=== PATIENT | female | born 1975 | race Caucasian/White ===

== ENCOUNTER 2016-10-28 20:32 | Emergency (ER) | payer BC ==
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
[2016-10-29] MEDS ORDERED: KETOROLAC TROMETHAMINE 60 MG/2 ML SDV IM ONE (00:49)
[2016-10-29] MEDS ORDERED: DIPHENHYDRAMINE HCL 50 MG/ML VIAL IM ONE (00:50)
[2016-10-29] MEDS ORDERED: METOCLOPRAMIDE HCL INJ/PF 10 MG/2 ML SDV IM ONE (00:50)
[2016-10-29 02:41] VITALS: BP 180/90
== END 2016-10-29 02:39 | disposition home or self-care (01) ==
LOC: ER 20:32
DX: R51 Headache (principal); I10 Essential (primary) hypertension; E11.9 Type 2 diabetes mellitus without complications; F17.200 Nicotine dependence, unspecified, uncomplicated; Z86.69 Personal history of other diseases of the nervous system and sense organs; Z88.1 Allergy status to other antibiotic agents; Z88.0 Allergy status to penicillin
CPT/HCPCS: 99284; 96372; 70450; J1200; J1885; J2765

== ENCOUNTER 2017-07-26 19:03 | Emergency (ER) | payer OTHER ==
[2017-07-26] MEDS ORDERED: HYDROCODONE/ACETAMINOPHEN 5-325 MG TABLET PO ONE (20:35)
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
[2017-07-26] MEDS ORDERED: KETOROLAC TROMETHAMINE 60 MG/2 ML SDV IM ONE (21:51)
[2017-07-26 22:01] VITALS: BP 135/85
== END 2017-07-26 22:00 | disposition home or self-care (01) ==
LOC: ER 19:03
DX: S16.1XXA Strain of muscle, fascia and tendon at neck level, initial encounter (principal); S09.90XA Unspecified injury of head, initial encounter; M25.552 Pain in left hip; M54.2 Cervicalgia; R51 Headache; M79.1 Myalgia; V87.7XXA Person injured in collision between other specified motor vehicles (traffic), initial encounter
CPT/HCPCS: 99284; 73502; 70450; 72125; L0120

== ENCOUNTER 2017-08-04 10:38 | Emergency (ER) | payer OTHER ==
[2017-08-04] MEDS ORDERED: HYDROCODONE/ACETAMINOPHEN 5-325 MG TABLET PO ONE (11:03)
--- NOTE | 2017-08-04 11:39 | RADIOLOGY REPORT (SQ) ---
EXAM DESCRIPTION: CT HEAD WITHOUT COMPLETED DATE/TIME: 08/04/2017 11:13 am REASON FOR STUDY: pain COMPARISON: 07/26/2017 TECHNIQUE: Axial images acquired through the brain without intravenous contrast. Images reviewed wi th bone, brain and subdural windows. Images stored on PACS. All CT scanners at this facility use dose modulation, iterative reconstruction, and/or weight based d osing when appropriate to reduce radiation dose to as low as reasonably achievable (ALARA). [facility]: Dose Right [facility]: CareDose [facility]: Dose Right [facility]: Teradose 4D [facility]: Smart [employer] RADIATION DOSE: CT Rad equipment meets quality standard of care and radiation dose reduction techniq ues were employed. CTDIvol: 64.6 mGy. DLP: 1163 mGy-cm. mGy. LIMITATIONS: None. FINDINGS: VENTRICLES: Normal size and contour. CEREBRUM: No masses. No hemorrhage. No midline shift. No evidence for acute infarction. Normal gra y/white matter differentiation. No areas of low density in the white matter. CEREBELLUM: No masses. No hemorrhage. No alteration of density. No evidence for acute infarction. EXTRAAXIAL SPACES: No fluid collections. No masses. ORBITS AND GLOBE: No intra- or extraconal masses. Normal contour of globe without masses. CALVARIUM: No fracture. PARANASAL SINUSES: No fluid or mucosal thickening. SOFT TISSUES: No mass or hematoma. OTHER: No other significant finding. IMPRESSION: NORMAL BRAIN CT WITHOUT CONTRAST. EVIDENCE OF ACUTE STROKE: NO. COMMENT: Quality ID # [id number]: Final reports with documentation of one or more dose reduction techniques (e.g., Automated exposure control, adjustment of the mA and/or kV according to patient size, use of iterative reconstruction technique) TECHNICAL DOCUMENTATION: JOB ID: [id number] [employer]- All Rights Reserved
--- NOTE | 2017-08-04 12:26 | ER Document Report ---
ED General - General Chief Complaint: Headache Stated Complaint: HEADPAIN AND NAUSEA Time Seen by Provider: 08/04/17 11:02 Notes: Patient complains of severe bilateral head and neck pain. She states is worse on the right. She states she has had cough cold and congestion for several days and this seems to exacerbate the pain. The pain does radiate into her neck. It is worse with movement and better with rest. Is been no trauma. She has not noticed any rash. She feels that there may have been some swelling. She also states that for several months she has been out of her insulin. Symptoms have been intermittent. And moderate. TRAVEL OUTSIDE OF THE [place] IN LAST 30 DAYS: No - Related Data Allergies/Adverse Reactions: aloe Allergy (Verified 08/04/17 10:40) clindamycin Allergy (Verified 08/04/17 10:40) Penicillins Allergy (Verified 08/04/17 10:40) Past Medical History - Social History Smoking Status: Never Smoker Chew tobacco use (# tins/day): No Frequency of alcohol use: None Drug Abuse: None Family History: Reviewed & Not Pertinent Patient has suicidal ideation: No Patient has homicidal ideation: No - Past Medical History Cardiac Medical History: Reports: Hx Hypertension - states bp high on occassion -states not on any meds Endocrine Medical History: Reports: Hx Diabetes Mellitus Type 2 Renal/ Medical History: Denies: Hx Peritoneal Dialysis Past Surgical History: Reports: Hx Cholecystectomy, Hx Orthopedic Surgery - knees x 5 - Immunizations Immunizations up to date: Yes Hx Diphtheria, Pertussis, Tetanus Vaccination: No Review of Systems - Review of Systems Constitutional: Chills, Malaise Cardiovascular: denies: Chest pain, Palpitations Respiratory: Cough. denies: Short of breath Neurological/Psychological: Headaches -: Yes All other systems reviewed and negative Physical Exam - Vital signs Vitals: Temp Pulse Resp BP Pulse Ox 98.4 F 94 20 144/92 H 96 08/04/17 10:49 08/04/17 10:49 08/04/17 10:49 08/04/17 10:49 08/04/17 10:49 Interpretation: Normal - General General appearance: Appears well, Alert In distress: None - HEENT Head: Normocephalic, Atraumatic Eyes: Normal Pupils: PERRL - Respiratory Respiratory status: No respiratory distress Chest status: Nontender Breath sounds: Normal Chest palpation: Normal - Cardiovascular Rhythm: Regular Heart sounds: Normal auscultation Murmur: No - Abdominal Inspection: Normal Distension: No distension Bowel sounds: Normal Tenderness: Nontender Organomegaly: No organomegaly - Back Back: Normal, Nontender - Extremities General upper extremity: Normal inspection, Nontender, Normal color, Normal ROM , Normal temperature General lower extremity: Normal inspection, Nontender, Normal color, Normal ROM , Normal temperature, Normal weight bearing. No: Doc's sign - Neurological Neuro grossly intact: Yes Cognition: Normal Orientation: AAOx4 [place] Coma Scale Eye Opening: Spontaneous [place] Coma Scale Verbal: Oriented [place] Coma Scale Motor: Obeys Commands [place] Coma Scale Total: 15 Speech: Normal Cranial nerves: Normal Cerebellar coordination: Normal Motor strength normal: LUE, RUE, LLE, RLE Additional motor exam normals: Equal butcher head. No: Pronator drift Sensory: Normal - Psychological Associated symptoms: Normal affect, Normal mood - Skin Skin Temperature: Warm Skin Moisture: Dry Skin Color: Normal Course - Vital Signs Vital signs: Temp Pulse Resp BP Pulse Ox 98.4 F 94 20 144/92 H 96 08/04/17 10:49 08/04/17 10:49 08/04/17 10:49 08/04/17 10:49 08/04/17 10:49 - Laboratory Laboratory results interpreted by me: 08/04/17 11:19 POC Glucose 304 H Discharge - Discharge Clinical Impression: Viral syndrome Headache Qualifiers: Headache type: unspecified Headache chronicity pattern: acute headache Intractability: intractable Qualified Code(s): R51 - Headache Condition: Stable Disposition: HOME, SELF-CARE Instructions: Viral Syndrome ([facility]), Headache ([facility]) Additional Instructions: use Tunegrojeo as directed. Prescriptions: Insulin Glargine,Hum.rec.anlog [Touterrell Yañez] 40 unit SQ QHS 30 Days insuln.pen Oseltamivir Phosphate [Tamiflu 75 mg Capsule] 75 mg PO BID 5 Days #10 capsule
[2017-08-04 12:35] VITALS: BP 149/95
== END 2017-08-04 12:35 | disposition home or self-care (01) ==
LOC: ER 10:38
DX: B34.9 Viral infection, unspecified (principal); R51 Headache; R11.0 Nausea; M54.2 Cervicalgia; R05 Cough; R09.81 Nasal congestion; E11.9 Type 2 diabetes mellitus without complications; Z79.4 Long term (current) use of insulin
CPT/HCPCS: 70450; 82962; 99284

== ENCOUNTER 2017-08-25 10:30 | Emergency (ER) | payer SELFPAY ==
[2017-08-25 10:36] VITALS: BP 139/82
--- NOTE | 2017-08-25 10:57 | ER Document Report ---
ED Medical Screen (RME) - General Chief Complaint: Leg Swelling Stated Complaint: LEG PAIN Time Seen by Provider: 08/25/17 10:56 Notes: several days of right leg pain/swelling. no hx dvt TRAVEL OUTSIDE OF THE [place] IN LAST 30 DAYS: No - Related Data Allergies/Adverse Reactions: aloe Allergy (Verified 08/25/17 10:48) clindamycin Allergy (Verified 08/25/17 10:48) Penicillins Allergy (Verified 08/25/17 10:48) Past Medical History - Social History Chew tobacco use (# tins/day): No Frequency of alcohol use: None Drug Abuse: None - Past Medical History Cardiac Medical History: Reports: Hx Hypertension - states bp high on occassion -states not on any meds Endocrine Medical History: Reports: Hx Diabetes Mellitus Type 2 Renal/ Medical History: Denies: Hx Peritoneal Dialysis Past Surgical History: Reports: Hx Cholecystectomy, Hx Orthopedic Surgery - knees x 5 - Immunizations Immunizations up to date: Yes Hx Diphtheria, Pertussis, Tetanus Vaccination: No Physical Exam - Vital signs Vitals: Temp Pulse Resp BP Pulse Ox 98.7 F 87 16 139/82 H 97 08/25/17 10:35 08/25/17 10:35 08/25/17 10:35 08/25/17 10:35 08/25/17 10:35 Course - Vital Signs Vital signs: Temp Pulse Resp BP Pulse Ox 98.7 F 87 16 139/82 H 97 08/25/17 10:35 08/25/17 10:35 08/25/17 10:35 08/25/17 10:35 08/25/17 10:35
[2017-08-25] MEDS ORDERED: KETOROLAC TROMETHAMINE 60 MG/2 ML SDV IM ONE (11:56)
--- NOTE | 2017-08-25 12:28 | RADIOLOGY REPORT (SQ) ---
EXAM DESCRIPTION: VENOUS UNILATERAL LOWER COMPLETED DATE/TIME: 08/25/2017 12:20 pm REASON FOR STUDY: right leg pain/swelling COMPARISON: None. TECHNIQUE: Dynamic and static milligan scale and color images acquired of the right leg venous system. S elected spectral images acquired with additional compression and augmentation maneuvers. The contrala teral common femoral vein and saphenofemoral junction were also imaged. Images stored on PACS. LIMITATIONS: None. FINDINGS: COMMON FEMORAL: Normal phasicity, compression and augmentation. No visualized echogenic ma terial on milligan scale. No defects on color images. FEMORAL: Normal compression and augmentation. No visualized echogenic material on milligan scale. No defe cts on color images. POPLITEAL: Normal compression, augmentation. No visualized echogenic material on milligan scale. No defec ts on color images. CALF VESSELS: Normal compression, augmentation. No visualized echogenic material on milligan scale. No de fects on color images. GSV and SSV: Normal compression, augmentation. No visualized echogenic material on milligan scale. No def ects on color images. ANY DEEP VENOUS INSUFFICIENCY: Not evaluated. ANY EVIDENCE OF POPLITEAL CYST: No. OTHER: No other significant finding. CONTRALATERAL COMMON FEMORAL VEIN AND SAPHENOFEMORAL JUNCTION: Normal phasicity, compression and augmentation. No visualized echogenic material on milligan scale. No de fects on color images. IMPRESSION: NO EVIDENCE DVT OR SVT IN THE RIGHT LEG. TECHNICAL DOCUMENTATION: JOB ID: [id number] [employer]- All Rights Reserved Reading location - IP/workstation name: [email or web address]
--- NOTE | 2017-08-25 12:40 | ER Document Report ---
ED Extremity Problem, Lower - General Chief Complaint: Leg Swelling Stated Complaint: LEG PAIN Time Seen by Provider: 08/25/17 10:56 Information source: Patient Notes: 41 years old female presents today with pain and swelling over the right leg including the calf and thigh. This been going on since early this morning. I therefore present to the ED has no previous history of DVT. Denies any difficulty in breathing or wheezing. Denies any fever chills or other constitutional symptoms. TRAVEL OUTSIDE OF THE [place] IN LAST 30 DAYS: No - HPI Patient complains to provider of: No: Altered sensation, Injury, Pain, Swelling , Other Location: Leg - She is on, Thigh Where: Home. No: Indoors, Neighbor's, Alf, Outdoors, Public place, School, Sports, Work, Other Onset/Duration: Sudden Quality of pain: Achy, Dull. denies: No pain, Burning, Cramping, Fullness, Pressure, Sharp, Stabbing, Throbbing, Other Severity: Moderate Pain Level: 3 Context: denies: Barefoot, Burn, Crush, Direct blow, Fell, Laceration, Prolonged pressure on ext, Recent immobilization, Recent surgery, Recent travel , Stubbed, Twisted, Wearing shoes, Other Recent injury: No Associated symptoms: denies: Chest pain, Chills, Dizzy, Fainting, Fever, Yolo a crack, Yolo a pop, Hurts to breath, Painful ambulation, Rapid heart rate, Seizure, Short of breath, Sweaty, Unable to bear weight, Weak, Other Exacerbated by: denies: Nothing, Hanging down, Movement, Walking, Other - Related Data Allergies/Adverse Reactions: aloe Allergy (Verified 08/25/17 10:48) clindamycin Allergy (Verified 08/25/17 10:48) Penicillins Allergy (Verified 08/25/17 10:48) Past Medical History - General Information source: Patient - Social History Smoking Status: Current Every Day Smoker Chew tobacco use (# tins/day): No Frequency of alcohol use: None Drug Abuse: None Family History: Reviewed & Not Pertinent Patient has suicidal ideation: No Patient has homicidal ideation: No - Past Medical History Cardiac Medical History: Reports: Hx Hypertension - states bp high on occassion -states not on any meds Endocrine Medical History: Reports: Hx Diabetes Mellitus Type 2 Renal/ Medical History: Denies: Hx Peritoneal Dialysis Past Surgical History: Reports: Hx Cholecystectomy, Hx Orthopedic Surgery - knees x 5 - Immunizations Immunizations up to date: Yes Hx Diphtheria, Pertussis, Tetanus Vaccination: No Review of Systems - Review of Systems Constitutional: denies: No symptoms reported, See HPI, Chills, Diaphoresis, Fever, Malaise, Weakness, Other, Weight gain, Weight loss, Recent illness EENT: denies: No symptoms reported, See HPI, Eye pain, Eye discharge, Blurred vision, Tearing, Double vision, Ear pain, Ear discharge, Nose pain, Nose congestion, Nose discharge, Sinus pressure, Sinus discharge, Throat pain, Difficulty swallowing, Throat swelling, Mouth pain, Mouth swelling, Dental problem, Vertigo, Other Cardiovascular: denies: No symptoms reported, See HPI, Chest pain, Palpitations , Heart racing, Orthopnea, Dyspnea, Syncope, Dizziness, Lightheaded, Edema, Other, Paroxysmal Nocturnal Dysp Respiratory: denies: No symptoms reported, See HPI, Cough, Hurts to breathe, Hemoptysis, Short of breath, Sputum, Stridor, Wheezing, Other Gastrointestinal: denies: No symptoms reported, See HPI, Abdomen distended, Abdominal pain, Diarrhea, Nausea, Vomiting, Constipation, Blood streaked bowels , Poor appetite, Poor fluid intake, Blood in vomit, Black stools, Rectal bleeding, Last bowel movement, Fecal incontinence, Other Genitourinary: denies: No symptoms reported, See HPI, Burning, Dysuria, Discharge, Frequency, Flank pain, Hematuria, Incontinence, Pain, Urgency, Retention, Other Female Genitourinary: denies: No symptoms reported, See HPI, Last menstrual period, , Post menopausal, Heavy/abnormal periods, Irregular period, Vaginal bleeding, Vaginal discharge, Vaginal odor, Painful intercourse, Other Musculoskeletal: See HPI Physical Exam - Vital signs Vitals: Temp Pulse Resp BP Pulse Ox 98.7 F 87 16 139/82 H 97 08/25/17 10:35 08/25/17 10:35 08/25/17 10:35 08/25/17 10:35 08/25/17 10:35 - Notes Notes: PHYSICAL EXAMINATION: GENERAL: Well-appearing, well-nourished and in no acute distress. HEAD: Atraumatic, normocephalic. EYES: Pupils equal round and reactive to light, extraocular movements intact, conjunctiva are normal. ENT: Nares patent, oropharynx clear without exudates. Moist mucous membranes. NECK: Normal range of motion, supple without lymphadenopathy LUNGS: Breath sounds clear to auscultation bilaterally and equal. No wheezes rales or rhonchi. HEART: Regular rate and rhythm without murmurs ABDOMEN: Soft, nontender, nondistended abdomen. No guarding, no rebound. No masses appreciated. Female : deferred Musculoskeletal: Normal range of motion, no pitting or edema. No cyanosis. NEUROLOGICAL: Examination of the right lower extremity shows no obvious swelling but tenderness over the almost entire thigh including medial side as well as calf tenderness were noted. Neurovascular function distally was within normal limits. PSYCH: Normal mood, normal affect. SKIN: Warm, Dry, normal turgor, no rashes or lesions noted. Course - Vital Signs Vital signs: Temp Pulse Resp BP Pulse Ox 98.7 F 87 18 139/82 H 97 08/25/17 10:35 08/25/17 10:35 08/25/17 11:03 08/25/17 10:35 08/25/17 10:35 - Diagnostic Test Radiology reviewed: Reports reviewed - Venous Doppler studies came back as negative for DVT Discharge - Discharge Clinical Impression: Right leg pain, Sprain and strain Disposition: HOME, SELF-CARE Instructions: Sprain ([facility]) Prescriptions: Baclofen [Baclofen 20 Mg Tablet] 20 mg PO BIDP PRN #20 tablet PRN Reason: Diclofenac Sodium 50 mg PO TID PRN #30 tablet.dr LARIOS Reason:
== END 2017-08-25 13:14 | disposition home or self-care (01) ==
LOC: ER 10:30
DX: S86.911A Strain of unspecified muscle(s) and tendon(s) at lower leg level, right leg, initial encounter (principal); S76.911A Strain of unspecified muscles, fascia and tendons at thigh level, right thigh, initial encounter; M79.89 Other specified soft tissue disorders; M79.604 Pain in right leg; F17.200 Nicotine dependence, unspecified, uncomplicated; I10 Essential (primary) hypertension; E11.9 Type 2 diabetes mellitus without complications; X58.XXXA Exposure to other specified factors, initial encounter
CPT/HCPCS: 99284; 96372; 93971; J1885